=== PATIENT | male | born 1990 | race Caucasian/White ===

== ENCOUNTER 2017-08-20 11:47 | Emergency (ER) | payer SELFPAY ==
[~2017-08-20] VITALS: Ht 182.9 cm; Wt 75.3 kg
[2017-08-20 14:23] VITALS: BP 132/70
== END 2017-08-20 14:23 | disposition home or self-care (01) ==
LOC: ED 11:47
DX: M54.5 Low back pain (principal)
CPT/HCPCS: J1885; Q0092